=== PATIENT | male | born 1960 | race Caucasian/White ===

== ENCOUNTER 2016-07-31 02:06 | Emergency (ER) | payer BC ==
[~2016-07-31] VITALS: Ht 167.6 cm; Wt 82.0 kg
[2016-07-31 02:11] VITALS: Ht 167.6 cm; Wt 82.0 kg
--- NOTE | 2016-07-31 02:28 | ERA ---
ER Documentation Chief Complaint Date/Time DATE: 07/31/16 TIME: 02:28 Chief Complaint HTN HPI The patient is a 56-year-old male, presenting to the ED because of elevated blood pressure at home. He then took another Coreg 12.5 mg. He is under a lot of stress, denies headache, dizziness, facial pain, neck pain, chest pain, dyspnea, abdominal pain, vomiting, dysuria, diarrhea. He does not smoke, drinks socially Past medical history: Hypertension has been on Coreg 12.5 mg daily since November 2015 Past surgical history: Varicosis vein ROS All systems reviewed and are negative except as per history of present illness. Medications Home Meds Active Scripts Amlodipine Besylate* (Norvasc*) 5 Mg Tablet, 5 MG PO DAILY for 30 Days, TAB Prov:IMAN HOORWITZ MD 07/31/16 Physical Exam Vitals Vital Signs Date Time Temp Pulse Resp B/P Pulse Ox O2 Delivery O2 Flow Rate FiO2 07/31/16 03:49 98.0 50 20 153/86 99 Room Air 07/31/16 02:30 97.6 52 18 166/99 99 Room Air 07/31/16 02:11 97.6 56 18 205/95 99 Physical Exam Const: No acute distress. Anxious Head: Atraumatic. Eyes: Normal Conjunctiva. ENT: Normal External Ears, Nose and Mouth. Neck: Full range of motion. No meningismus. Resp: Clear to auscultation bilaterally. Cardio: Regular but tachycardic Abd: Soft, non distended, normal bowel sounds, non tender. Skin: No petechiae or rashes. Back: No midline or flank tenderness. Ext: No cyanosis, or edema. Neur: Awake and alert. No focal deficit Psych: Normal Mood and Affect. Result Diagram: 07/31/16 0250 07/31/16 0250 Results 24 hrs Laboratory Tests Test 07/31/16 02:50 White Blood Count 9.210^3/ul Red Blood Count 4.8910^6/ul Hemoglobin 15.8g/dl Hematocrit 47.3% Mean Corpuscular Volume 96.7fl Mean Corpuscular Hemoglobin 32.3pg Mean Corpuscular Hemoglobin Concent 33.4g/dl Red Cell Distribution Width 13.2% Platelet Count 56854^3/UL Mean Platelet Volume 11.7fl Neutrophils % 62.9% Lymphocytes % 24.8% Monocytes % 7.3% Eosinophils % 3.8% Basophils % 0.7% Nucleated Red Blood Cells % 0.0/100WBC Neutrophils # 5.810^3/ul Lymphocytes # 2.310^3/ul Monocytes # 0.710^3/ul Eosinophils # 0.410^3/ul Basophils # 0.110^3/ul Nucleated Red Blood Cells # 0.010^3/ul Sodium Level 144mmol/L Potassium Level 4.0mmol/L Chloride Level 109mmol/L Carbon Dioxide Level 23mmol/L Anion Gap 16 Blood Urea Nitrogen 21mg/dl Creatinine 0.94mg/dl Glucose Level 112mg/dl Calcium Level 9.4mg/dl Current Medications Medications (Trade) Dose Ordered Sig/Anil Route PRN Reason Start Time Stop Time Status Last Admin Dose Admin Lorazepam (Ativan) 0.5 mg ONCE ONCE PO 07/31/16 03:00 07/31/16 03:01 DC 07/31/16 02:49 Procedures/MDM EKG: Read by emergency physician Rate/Rhythm: Sinus bradycardia 51 beats/min QRS, ST, T-waves: No ST elevation, no T inversion Impression: Abnormal EKG MEDICAL MAKING DECISION: The patient is a 56-year-old male, presenting with acute accelerated hypertension, acute stress, acute anxiety. He was treated with Ativan 0.5 mg p.o. with good response. Blood pressure improved. The differential diagnoses considered include but are not limited to sick sinus syndrome, beta-katelynn toxicity, acute coronary syndrome, acute myocardial infarction, pericarditis, pulmonary embolism, aortic dissection, pneumonia, pleural effusion, pneumothorax, GERD, chest wall pain. His bradycardia due to extra dose of Coreg Departure Diagnosis: Primary Impression: HTN (hypertension) Additional Impression: Stress Condition: Good Comments He was advised to stop Coreg and started Norvasc 5 mg daily due to bradycardia I discussed the findings with the patient. I advised the patient to follow-up with the primary physician in about 1-2 days, sooner if needed and return if any concern. IMAN HOROWITZ MD Jul 31, 2016 02:28
[2016-07-31] MEDS ORDERED: LORAZEPAM 0.5 MG TAB PO ONE (03:00)
[2016-07-31 03:07] LABS: ADD SCAN DIFF NO
[2016-07-31 03:08] LABS: BASOPHIL # 0.1 10^3/ul (0.0-0.1); BASOPHILS % 0.7 % (0.0-2.0); EOSINOPHILS # 0.4 10^3/ul (0.0-0.5); EOSINOPHILS % 3.8 % (0.0-7.0); HEMATOCRIT 47.3 % (42.0-52.0); HEMOGLOBIN 15.8 g/dl (14.0-18.0); LYMPHOCYTES # 2.3 10^3/ul (0.8-2.9); LYMPHOCYTES % 24.8 % (15.0-51.0); MEAN CORPUSCULAR HEMOGLOBIN 32.3 pg (29.0-33.0); MEAN CORPUSCULAR HGB CONC 33.4 g/dl (32.0-37.0); MEAN CORPUSCULAR VOLUME 96.7 fl (82.0-101.0); MEAN PLATELET VOLUME 11.7 fl (7.4-10.4); MONOCYTE # 0.7 10^3/ul (0.3-0.9); MONOCYTES % 7.3 % (0.0-11.0); NEUTROPHIL # 5.8 10^3/ul (1.6-7.5); NEUTROPHILS % 62.9 % (39.0-77.0); PLATELET COUNT 221 10^3/UL (140-415); RED BLOOD COUNT 4.89 10^6/ul (4.70-6.10); RED CELL DISTRIBUTION WIDTH 13.2 % (11.5-14.5); WHITE BLOOD COUNT 9.2 10^3/ul (4.8-10.8)
[2016-07-31 03:22] LABS: CREATININE 0.94 mg/dl (0.61-1.24)
[2016-07-31 03:23] LABS: CALCIUM 9.4 mg/dl (8.4-10.2)
[2016-07-31] MEDS ORDERED: AMLO5TAB4 PO (04:02)
[2016-07-31 04:23] VITALS: BP 142/84; PULSE 67; RESP 20; TEMP 98
== END 2016-07-31 04:25 | disposition home or self-care (01) ==
LOC: E/R 02:06
DX: I10 Essential (primary) hypertension (principal); Z73.3 Stress, not elsewhere classified
CPT/HCPCS: 36415; 80048; 85025; 93005

== ENCOUNTER 2017-02-03 04:13 | Inpatient (IN) | payer BC ==
[~2017-02-03] VITALS: Ht 167.6 cm; Wt 78.1 kg
[2017-02-03] VITALS (7 sets, daily range): BP systolic 114–140; BP diastolic 73–87; PULSE 52–62; RESP 17–18; TEMP 97; Ht 167.6 cm; Wt 78.1 kg
[~2017-02-03 04:13] MED LIST: AMLO5TAB4 PO
[2017-02-03] MEDS ORDERED: SOD CHLORIDE 0.9% 1,000 ML IV STA (04:28)
[2017-02-03 05:00] LABS: ABNORMAL IP MESSAGE 1; BASOPHIL # 0.1 10^3/ul (0.0-0.1); BASOPHILS % 0.7 % (0.0-2.0); EOSINOPHILS # 0.5 10^3/ul (0.0-0.5); EOSINOPHILS % 4.3 % (0.0-7.0); HEMATOCRIT 45.5 % (42.0-52.0); HEMOGLOBIN 15.1 g/dl (14.0-18.0); LYMPHOCYTES # 5.9 10^3/ul (0.8-2.9); LYMPHOCYTES % 52.9 % (15.0-51.0); MEAN CORPUSCULAR HEMOGLOBIN 31.9 pg (29.0-33.0); MEAN CORPUSCULAR HGB CONC 33.2 g/dl (32.0-37.0); MEAN PLATELET VOLUME 11.2 fl (7.4-10.4); MONOCYTE # 0.9 10^3/ul (0.3-0.9); MONOCYTES % 8.3 % (0.0-11.0); NEUTROPHIL # 3.7 10^3/ul (1.6-7.5); NEUTROPHILS % 33.4 % (39.0-77.0); PLATELET COUNT 273 10^3/UL (140-415); POSITIVE DIFF @See below; RED BLOOD COUNT 4.74 10^6/ul (4.70-6.10); RED CELL DISTRIBUTION WIDTH 13.9 % (11.5-14.5); WHITE BLOOD COUNT 11.2 10^3/ul (4.8-10.8)
[2017-02-03 05:16] LABS: INR 0.89; PT RATIO 0.9
[2017-02-03] MEDS: DILTIAZEM 25 MG INJ IV ONE ×2 (05:16→05:18)
[2017-02-03 05:17] LABS: PARTIAL THROMBOPLASTIN TIME 23.6 Sec (25.0-35.0)
[2017-02-03] MEDS: DILTIAZEM-D5W 125MG/125ML DRIP 125 ML IV SCH ×2 (05:18→05:21)
[2017-02-03 05:24] LABS: ALANINE AMINOTRANSFERASE 53 IU/L (13-69); ALBUMIN 4.5 g/dl (3.3-4.9); ALKALINE PHOSPHATASE 80 IU/L (42-121); ANION GAP 14 (8-16); ASPARTATE AMINO TRANSFERASE 87 IU/L (15-46); BILIRUBIN,INDIRECT 0.7 mg/dl (0-1.1); BILIRUBIN,TOTAL 0.7 mg/dl (0.2-1.3); BLOOD UREA NITROGEN 18 mg/dl (7-20); CALCIUM 9.3 mg/dl (8.4-10.2); CARBON DIOXIDE 22 mmol/L (21-31); CHLORIDE 110 mmol/L (97-110); CREATININE 1.09 mg/dl (0.61-1.24); GLUCOSE 107 mg/dl (70-220); POTASSIUM 3.8 mmol/L (3.5-5.1); SODIUM 142 mmol/L (135-144); TOTAL PROTEIN 7.5 g/dl (6.1-8.1)
--- NOTE | 2017-02-03 05:25 | RADRPT ---
PROCEDURE: CHEST - 1 VIEW CLINICAL INDICATION: 57-year-old male with chest pain. TECHNIQUE: A single frontal AP portable view of the chest was performed. The images were reviewed on a PACS workstation. COMPARISON: None. FINDINGS: There is a shallow inspiration accentuating the heart size. Accounting for this, the cardiomediastin al silhouette is within normal limits. There is mild bibasilar subsegmental atelectasis. There is n o evidence for an infiltrate. There is no evidence for congestive heart failure. There is no eviden ce for pneumothorax. The osseous structures are intact. IMPRESSION: Shallow inspiration with mild bibasilar subsegmental atelectasis. .Harley Shelton MD, Date Time Electronically viewed and signed by .Harley Shelton MD, on 02/03/2017 05:25 .M/
--- NOTE | 2017-02-03 05:34 | ERA ---
ER Documentation Chief Complaint Date/Time DATE: 02/03/17 TIME: 05:31 Chief Complaint Pt. states, "my heart is going really fast!". c/o chest pain rad left shou HPI This is a 57-year-old man who comes in saying "my heart is going really fast". Patient said he has had palpitations will come up from bed. Also complains of some mild substernal chest pain lasting for 10 minutes when he first noticed palpitations. No nausea vomiting no fevers no chills. Palpitations have been continuous since he woke up. Patient has no history of any palpitations in the past. No other current complaints. ROS All systems reviewed and are negative except as per history of present illness. Medications Home Meds Active Scripts Amlodipine Besylate* (Norvasc*) 5 Mg Tablet, 5 MG PO DAILY for 30 Days, TAB Prov:IMAN HOROWITZ MD 07/31/16 PMhx/Soc Anesthesia Reaction: No Hx Neurological Disorder: No Hx Respiratory Disorders: No Hx Cardiac Disorders: Yes (HTN) Hx Psychiatric Problems: No Hx Miscellaneous Medical Probl: No Hx Alcohol Use: Yes Hx Substance Use: No Hx Tobacco Use: No Physical Exam Vitals Vital Signs Date Time Temp Pulse Resp B/P Pulse Ox O2 Delivery O2 Flow Rate FiO2 02/03/17 05:15 97.0 125 20 145/81 99 Nasal Cannula 2.0 02/03/17 04:43 104 20 131/84 99 Nasal Cannula 2.0 02/03/17 04:35 Nasal Cannula 2 02/03/17 04:35 126 29 132/78 96 Nasal Cannula 2.0 02/03/17 04:30 246 28 147/121 97 Room Air 02/03/17 04:29 247 27 144/109 97 Room Air 02/03/17 04:19 97.0 240 24 147/86 99 Physical Exam Const: [] Head: Atraumatic Eyes: Normal Conjunctiva ENT: Normal External Ears, Nose and Mouth. Neck: Full range of motion..~ No meningismus. Resp: Clear to auscultation bilaterally Cardio: Regular rate and rhythm, no murmurs Abd: Soft, non tender, non distended. Normal bowel sounds Skin: No petechiae or rashes Back: No midline or flank tenderness Ext: No cyanosis, or edema Neur: Awake and alert Psych: Normal Mood and Affect Result Diagram: 02/03/17 0447 Results 24 hrs Laboratory Tests Test 02/03/17 04:47 White Blood Count 11.210^3/ul Red Blood Count 4.7410^6/ul Hemoglobin 15.1g/dl Hematocrit 45.5% Mean Corpuscular Volume 96.0fl Mean Corpuscular Hemoglobin 31.9pg Mean Corpuscular Hemoglobin Concent 33.2g/dl Red Cell Distribution Width 13.9% Platelet Count 63851^3/UL Mean Platelet Volume 11.2fl Neutrophils % 33.4% Lymphocytes % 52.9% Monocytes % 8.3% Eosinophils % 4.3% Basophils % 0.7% Nucleated Red Blood Cells % 0.0/100WBC Neutrophils # 3.710^3/ul Lymphocytes # 5.910^3/ul Monocytes # 0.910^3/ul Eosinophils # 0.510^3/ul Basophils # 0.110^3/ul Nucleated Red Blood Cells # 0.010^3/ul Prothrombin Time 12.0Sec Prothrombin Time Ratio 0.9 INR International Normalized Ratio 0.89 Activated Partial Thromboplast Time 23.6Sec Current Medications Medications (Trade) Dose Ordered Sig/Anil Route PRN Reason Start Time Stop Time Status Last Admin Dose Admin Sodium Chloride (NS) 1,000 ml @ 1,000 mls/hr Q1H STAT IV 02/03/17 04:28 02/03/17 05:27 DC 02/03/17 05:16 Diltiazem HCl 20 mg 20 mg ONCE ONCE IV 02/03/17 04:30 02/03/17 04:31 DC 02/03/17 05:18 Diltiazem HCl (Cardizem-D5W 125 Mg/125 ml Drip) 125 ml @ 5 mls/hr TITRATE IV 02/03/17 05:00 02/03/17 05:21 Procedures/MDM Chest X-ray 1V Interpreted by me: Soft Tissue: No acute abnormalities Bones: No acute abnormalities Mediastinum/Cardiac Silhouette/Lungs: [No acute abnormalities] EKG: Rate/Rhythm: Irregular rate. Tachycardic rhythm. QRS, ST, T-waves: [No changes consistent w/ acute ischemia] Impression: Atrial fibrillation with rapid ventricular response Patient's symptoms are concerning for cardiac cause will require inpatient workup and continuous monitoring. Further w/u for ischemia, arrhythmia, PE or dissection will be deferred to the inpatient team. Accepting Care Team: Current data and ongoing care discussed. Time: 5:30 AM Primary Provider: Hospitalist Consulting: [BLESSING] Outstanding Data: none Critical Care: Time: 45 minutes Treatments/Evaluations: Close monitoring and treatment of unstable vital signs, cardiorespiratory, and neurologic status, while maintaining tight balance of fluid, respiratory, and cardiac interventions. Departure Diagnosis: Primary Impression: Chest pain Qualified Code: R07.9 - Chest pain, unspecified type Additional Impression: Atrial fibrillation with RVR Condition: Serious GIL MARTINEZ Feb 03, 2017 05:34
[2017-02-03 05:36] LABS: B-TYPE NATRIURETIC PEPTIDE 184 PG/ML (0-125)
[2017-02-03 05:41] LABS: TROPONIN-I < 0.012 ng/ml (0.00-0.12)
[2017-02-03] MEDS ORDERED: METOPROLOL 5 MG INJ ONE (05:47)
[2017-02-03] MEDS: METOPROLOL 5 MG INJ IV ONE ×2 (06:11→06:16)
[2017-02-03] MEDS ORDERED: DILTIAZEM 25 MG INJ IV ONE (06:30)
--- NOTE | 2017-02-03 07:54 | HP ---
Date/Time of Note Date/Time of Note DATE: 02/03/17 TIME: 07:49 Assessment/Plan VTE Prophylaxis VTE Prophylaxis Intervention: LMWH Lines/Catheters IV Catheter Type (from Nrs): Saline Lock Assessment/Plan Assessment/Plan ASSESSMENT 57-year-old male with a history of hypertension presents with palpitation and chest pain found to be in A-fib with RVR PLAN Patient is status post IV diltiazem and metoprolol and is currently rate controlled He will be started on oral beta-katelynn was as needed IV meds Admit to telemetry unit Trend troponin 2D echo Check TSH Cardiology consult HPI/ROS Admit Date/Time Admit Date/Time Hx of Present Illness This is a 57-year-old male with a history of hypertension who presented to emergency department with acute onset of palpitation, shortness of breath and chest pain. When he presented to the ER he was found to have a heart rate greater than 200. EKG shows A. fib with RVR. He was given IV diltiazem and metoprolol and now he is rate controlled. PMH/Family/Social Past Medical History Medical History: hypertension Social History Alcohol Use: none Smoking Status: Never smoker Drug Use: none Exam/Review of Systems Vital Signs Vitals Vital Signs Date Time Temp Pulse Resp B/P Pulse Ox O2 Delivery O2 Flow Rate FiO2 02/03/17 06:18 97.0 76 20 129/75 99 Nasal Cannula 2.0 Exam Constitutional: alert, oriented, well developed Head: atraumatic, normocephalic Eyes: EOMI, PERRL Respiratory: clear to auscultation, normal air movement Cardiovascular: irregular rhythm Gastrointestinal: non-tender, soft Extremities: normal pulses Labs Result Diagram: 02/03/17 0447 02/03/17 0447 Medications Medications Current Medications Diltiazem HCl (Cardizem-D5W 125 Mg/125 ml Drip) 125 ml @ 5 mls/hr TITRATE IV Last administered on 02/03/17t 05:21; Admin Dose 5 MLS/HR; Start 02/03/17 at 05: 00 GIL LOPEZ MD Feb 03, 2017 07:54
[2017-02-03] MEDS ORDERED: ACETAMINOPHEN 325 MG TAB PO PRN (08:00)
[2017-02-03] MEDS ORDERED: NACL 0.9% 3 ML SYG IV SCH (08:00)
[2017-02-03] MEDS ORDERED: morphine 2 MG INJ IV PRN (08:00)
[2017-02-03] MEDS ORDERED: ONDANSETRON 4 MG INJ IV PRN (08:00)
[2017-02-03] MEDS ORDERED: NITROGLYCERIN (SL) 0.4 MG TAB SL PRN (08:00)
[2017-02-03] MEDS ORDERED: METOPROLOL 25 MG TAB PO SCH (09:00)
[2017-02-03] MEDS: ASPIRIN 81 MG TAB PO SCH (12:02)
[2017-02-03 12:05] LABS: CK-MB 2.93 ng/ml (0.0-2.4)
[2017-02-03] MEDS: ENOXAPARIN 40 MG/0.4 ML SYG SC SCH (12:05)
[2017-02-03 12:10] LABS: TROPONIN-I 0.221 ng/ml (0.00-0.12)
[2017-02-03 14:49] LABS: CK-MB 2.61 ng/ml (0.0-2.4); TROPONIN-I 0.209 ng/ml (0.00-0.12)
[2017-02-03] MEDS ORDERED: POTASSIUM CHLORIDE (SR) 20 MEQ TAB PO STA (14:58)
[2017-02-03] MEDS ORDERED: MAGNESIUM SULFATE 2 GM/50 ML 50 ML IVPB ONE (15:00)
--- NOTE | 2017-02-03 15:04 | CONS ---
Date/Time of Note Date/Time of Note DATE: 02/03/17 TIME: 14:58 Assessment/Plan Assessment/Plan Additional Assessment/Plan SVT Mildly elevated troponin Hypertension -Patient palpitations and initial ECG with evidence of SVT. Unfortunately her no rhythm strips from the emergency room to review. As per the emergency room records, patient was possibly in atrial fibrillation. Patient did convert to sinus rhythm with IV Cardizem. Troponins are minimally elevated and likely secondary to tachycardia. Would continue aspirin therapy, continue beta- katelynn as heart rate and blood pressure permits, check echocardiogram, supplement potassium to maintain above 4.0 and magnesium above 2.0. Continue telemetry monitoring. Consultation Date/Type/Reason Admit Date/Time Type of Consultation: cv Reason for Consultation Palpitations Hx of Present Illness This is a 57-year-old male with past medical history of hypertension who presents with severe palpitations which woke him up from sleep last night. Patient with shortness of breath during this episode but denied chest pain. Symptoms did not resolve after a few minutes we came to the emergency room. In the emergency room, patient with heart rate above 240 was given IV Cardizem. As per review of medical records, patient converted to sinus rhythm. He did have a similar episode the night before which resolved on its own. He otherwise denies exertional chest pain or shortness of breath, palpitations or dizziness. 12 point review of systems was performed with all pertinent positives and negatives mentioned above and all else is negative Past Medical History Medical History: hypertension Past Surgical History Lower extremity varicose vein treatment Family History Significant Family History: no pertinent family hx Social History Alcohol Use: other (2 alcoholic beverages daily) Smoking Status: Former smoker Drug Use: none Other Social History 1 cup of coffee a day Exam/Review of Systems Vital Signs Vitals Vital Signs Date Time Temp Pulse Resp B/P Pulse Ox O2 Delivery O2 Flow Rate FiO2 02/03/17 12:15 62 02/03/17 11:47 97.8 18 140/80 98 02/03/17 09:15 Room Air 02/03/17 06:18 2.0 Exam No apparent distress Constitutional: alert, oriented Head: normocephalic Neck: supple Respiratory: other (Coarse breath sounds bilaterally, no wheezing) Cardiovascular: other (S1-S2 heard), regular rate and rhythm Gastrointestinal: bowel sounds, non-tender, soft Extremities: other (No edema) Results Result Diagram: 02/03/17 0447 02/03/17 0447 Results 24 hrs Laboratory Tests Test 02/03/17 04:47 02/03/17 10:57 02/03/17 13:47 White Blood Count 11.2 #H Red Blood Count 4.74 Hemoglobin 15.1 Hematocrit 45.5 Mean Corpuscular Volume 96.0 Mean Corpuscular Hemoglobin 31.9 Mean Corpuscular Hemoglobin Concent 33.2 Red Cell Distribution Width 13.9 Platelet Count 273 # Mean Platelet Volume 11.2 H Neutrophils % 33.4 L Lymphocytes % 52.9 H Monocytes % 8.3 Eosinophils % 4.3 Basophils % 0.7 Nucleated Red Blood Cells % 0.0 Neutrophils # 3.7 Lymphocytes # 5.9 H Monocytes # 0.9 Eosinophils # 0.5 Basophils # 0.1 Nucleated Red Blood Cells # 0.0 Prothrombin Time 12.0 L Prothrombin Time Ratio 0.9 INR International Normalized Ratio 0.89 Activated Partial Thromboplast Time 23.6 L Sodium Level 142 Potassium Level 3.8 Chloride Level 110 Carbon Dioxide Level 22 Anion Gap 14 Blood Urea Nitrogen 18 Creatinine 1.09 Glucose Level 107 Calcium Level 9.3 Total Bilirubin 0.7 Direct Bilirubin 0.00 Indirect Bilirubin 0.7 Aspartate Amino Transf (AST/SGOT) 87 H Alanine Aminotransferase (ALT/SGPT) 53 Alkaline Phosphatase 80 Troponin I < 0.012 0.221 *H 0.209 *H B-Type Natriuretic Peptide 184 H Total Protein 7.5 Albumin 4.5 Globulin 3.00 Albumin/Globulin Ratio 1.50 Creatine Kinase 113 98 Creatine Kinase Index 2.6 2.7 Creatinine Kinase MB (Mass) 2.93 H 2.61 H Magnesium Level 1.9 Medications Medications Current Medications Diltiazem HCl (Cardizem-D5W 125 Mg/125 ml Drip) 125 ml @ 5 mls/hr TITRATE IV Last administered on 02/03/17 05:21; Admin Dose 5 MLS/HR; Start 02/03/17 at 05: 00 Ondansetron HCl (Zofran Inj) 4 mg Q6H PRN IV NAUSEA AND/OR VOMITING; Start at 08:00 Aspirin (Aspirin) 81 mg DAILY PO Last administered on 02/03/17 12:02; Admin Dose 81 MG; Start 02/03/17 at 09:00 Nitroglycerin (Nitroglycerin (Sl Tab) 0.4 Mg) 1 tab Q5M PRN SL CHEST PAIN; Start 02/03/17 at 08:00 Acetaminophen (Tylenol Tab) 650 mg Q6H PRN PO PAIN LEVEL 1-3 OR FEVER Last administered on 02/03/17 12:01; Admin Dose 650 MG; Start 02/03/17 at 08:00 Morphine Sulfate (morphine) 2 mg Q4H PRN IV PAIN LEVEL 7-10; Start 02/03/17 at 08:00 Enoxaparin Sodium (Lovenox) 40 mg DAILY SC Last administered on 02/03/17 12:05 ; Admin Dose 40 MG; Start 02/03/17 at 09:00 Metoprolol Tartrate (Lopressor) 25 mg Q12 PO ; Start 02/03/17 at 09:00 Procedures Procedures ECG done in the emergency room this morning at 4:18 AM demonstrates SVT at 240 bpm, QRS 162 ms with right bundle branch block morphology, nonspecific ST segment abnormalities Arturo Castrejon DO Feb 03, 2017 15:04
--- NOTE | 2017-02-03 15:28 | RADRPT ---
Echocardiogram Report Patient Name: AMOL TAY Gender: Male Date: 1960 Study Date: 03-Feb-2017 [employer] Teacher: Jai Barros [facility] Location: [id number] Ref. Physician: GIL LOPEZ Quality: Good Procedures: Transthoracic echocardiogram with complete 2D, M-Mode, and doppler examination. Indications: Atrial Fibrillation. 2D/M Mode Doppler Measurement Value Normal Ranges Measurement Value Normal Ranges LVIDd 2D 4.4 3.5 - 5.6 cm AV Peak Juan 1.7 m/sec LVIDs 2D 2.8 2.1 - 4.1 cm AV Peak PG 11.0 mmHg FS 2D 37.2 % LVOT Peak Juan 1.1 m/sec LVPWd 2D 0.6 0.6 - 1.1 cm LVOT Peak PG 5.0 mmHg IVSd 2D 1.1 0.6 - 1.1 cm MV E Peak Juan 0.8 m/sec IVS/LVPW 2D 1.9 MV A Peak Juan 0.4 m/sec AoR Diam 2D 2.7 2.0 - 3.7 cm MV Decel Time 162 msec LA/Ao 2D 1 0 - 1 TR Peak Juan 2.3 m/sec EDV 2D 84.0 cm3 TR Peak PG 21.0 mmHg ESV 2D 20.8 cm3 RVSP 29.0 mmHg LA Dimen 2D 3.8 2.3 - 4.0 cm Findings Left Ventricle: Normal left ventricular systolic function. Normal left ventricular cavity size. Mild concentric left ventricular hypertrophy. Ejection fraction is visually estimated at 65 %. Abnormal Diastolic Function. Right Ventricle: Normal right ventricular size. Normal right ventricular systolic function. Left Atrium: The left atrium is normal in size. Right Atrium: The right atrium is normal in size. Mitral Valve: Normal appearance and function of the mitral valve with trace physiologic regurgitation. Aortic Valve: Normal appearance of the aortic valve. No significant aortic stenosis or insufficiency. Tricuspid Valve: Normal appearance of the tricuspid valve. Estimated peak PA systolic pressure 29 mmHg. There is trace tricuspid regurgitation. Pulmonic Valve: Normal pulmonic valve appearance. Pericardium: Normal pericardium with no significant pericardial effusion. Aorta: Normal aortic root. IVC: Normal size with poor respiratory collapse consistent with elevated right atrial pressure. Conclusions Normal left ventricular systolic function. Normal left ventricular cavity size. Mild concentric left ventricular hypertrophy. Ejection fraction is visually estimated at 65 %. Abnormal Diastolic Function. Normal right ventricular size. Normal right ventricular systolic function. The left atrium is normal in size. The right atrium is normal in size. No significant valvular stenosis or regurgitation seen. Normal pericardium with no significant pericardial effusion. Electronically Signed By: Arturo Castrejon 03-Feb-2017 15:27:51 -0700 Patient Name: AMOL TAY Study Date: 03-Feb-2017 [id number]
[2017-02-03] MEDS: METOPROLOL 25 MG TAB PO SCH (20:00)
[2017-02-04] VITALS (8 sets, daily range): BP systolic 134–156; BP diastolic 81–83; PULSE 40–61; RESP 18–20
[2017-02-04 08:11] LABS: BASOPHIL # 0.1 10^3/ul (0.0-0.1); BASOPHILS % 0.9 % (0.0-2.0); EOSINOPHILS # 0.4 10^3/ul (0.0-0.5); EOSINOPHILS % 4.1 % (0.0-7.0); HEMATOCRIT 43.5 % (42.0-52.0); HEMOGLOBIN 14.1 g/dl (14.0-18.0); LYMPHOCYTES # 2.6 10^3/ul (0.8-2.9); LYMPHOCYTES % 30.3 % (15.0-51.0); MEAN CORPUSCULAR HEMOGLOBIN 31.1 pg (29.0-33.0); MEAN CORPUSCULAR HGB CONC 32.4 g/dl (32.0-37.0); MEAN PLATELET VOLUME 11.4 fl (7.4-10.4); MONOCYTE # 0.8 10^3/ul (0.3-0.9); MONOCYTES % 9.3 % (0.0-11.0); NEUTROPHIL # 4.6 10^3/ul (1.6-7.5); NEUTROPHILS % 54.9 % (39.0-77.0); PLATELET COUNT 221 10^3/UL (140-415); RED BLOOD COUNT 4.53 10^6/ul (4.70-6.10); RED CELL DISTRIBUTION WIDTH 14.5 % (11.5-14.5); WHITE BLOOD COUNT 8.5 10^3/ul (4.8-10.8)
[2017-02-04] MEDS: ENOXAPARIN 40 MG/0.4 ML SYG SC SCH (08:40)
[2017-02-04] MEDS: METOPROLOL 25 MG TAB PO SCH (08:40)
[2017-02-04] MEDS: ASPIRIN 81 MG TAB PO SCH (08:40)
[2017-02-04 08:49] LABS: ALBUMIN 3.7 g/dl (3.3-4.9); ALBUMIN/GLOBULIN RATIO 1.23; BILIRUBIN,INDIRECT 1.3 mg/dl (0-1.1); BILIRUBIN,TOTAL 1.3 mg/dl (0.2-1.3); CALCIUM 8.8 mg/dl (8.4-10.2); CHOL/HDL RATIO 3.3 RATIO; CREATININE 1.07 mg/dl (0.61-1.24); MAGNESIUM 2.2 mg/dl (1.7-2.5); POTASSIUM 4.8 mmol/L (3.5-5.1); TOTAL PROTEIN 6.7 g/dl (6.1-8.1)
[2017-02-04] MEDS ORDERED: REGADENOSON 0.4 MG/5 ML SYG ONE (08:57)
[2017-02-04 09:27] LABS: THYROID STIMULATING HORMONE 1.75 MIU/L (0.465-4.680)
--- NOTE | 2017-02-04 11:01 | RADRPT ---
PROCEDURE: LEXISCAN MYOCARDIAL PERFUSION STUDY CLINICAL INDICATION: Atrial fibrillation with increased troponins. TECHNIQUE: Lexiscan 0.4 mg intravenously separate acquisition, gated myocardial perfusion SPECT us ing 32 mCi intravenously at stress and 10.5 mCi intravenously at rest was performed using the rest/s tress sequence. Poststress SPECT images were obtained in the supine position. COMPARISON: No prior studies. FINDINGS: Perfusion images reveal no evidence of perfusion defects. Poststress gated SPECT images demonstrate no wall motion abnormalities. IMPRESSION: 1. No evidence of perfusion defects. 2. No wall motion abnormalities. 3. The left ventricle ejection fraction at stress is estimated at greater than 70% likely due to sm all cardiac volume. RPTAT: HH Physician Renetta Date Time Electronically viewed and signed by Physician Renetta on 02/04/2017 11:01 /
--- NOTE | 2017-02-04 11:16 | PN ---
Date/Time of Note Date/Time of Note DATE: 02/04/17 TIME: 11:15 Assessment/Plan VTE Prophylaxis VTE Prophylaxis Intervention: ambulation Lines/Catheters IV [facility] Saline Lock Assessment/Plan Chief Complaint/Hosp Course Patient is a 57-year-old male with a past medical history of remote hypertension on no medications who was found to have palpitations and chest pain found to be in A. fib with RVR Assessment Atrial fibrillation with RVR, currently normal sinus rhythm Palpitations Chest pain Elevated troponin Bradycardia, a symptomatically Elevated indirect bilirubin, mild hypertension Plan -Cardiology consulted, on beta-blockers, heart rate is low, possible switch to different medication -No discrete evidence per cardiology of A. fib, keep on aspirin -Patient doing well, will appreciate cardiology recommendations, will DC when okay with cards. Problems: Subjective 24 Hr Interval Summary Free Text/Dictation no acute complaints Exam/Review of Systems Vital Signs Vitals Vital Signs Date Time Temp Pulse Resp B/P Pulse Ox O2 Delivery O2 Flow Rate FiO2 02/04/17 08:10 51 02/04/17 07:53 97.6 20 156/82 99 02/03/17 09:15 Room Air 02/03/17 06:18 2.0 Intake and Output 02/03/17 02/03/17 02/04/17 15:00 23:00 07:00 Intake Total 1140 ml Balance 1140 ml Exam Physical exam General: Patient is laying in bed and answers questions appropriately Mentation: Patient is alert and oriented 4, Head: Normocephalic atraumatic Eyes: EOMI, pupils reactive to light Neck: Supple, nontender, midline Respiratory: Clear to auscultation bilaterally Cardiovascular: regular rate, no obvious murmurs Gastrointestinal: non-tender to palpation, bowel sounds heard. Neurological: Moves all extremities spontaneously Skin: No new skin lesions Results Result Diagram: 02/04/17 0701 02/04/17 07 Results 24 hrs Laboratory Tests Test 02/03/17 13:47 02/04/17 07:01 Magnesium Level 1.9 2.2 Creatine Kinase 98 Creatine Kinase Index 2.7 Creatinine Kinase MB (Mass) 2.61 H Troponin I 0.209 *H White Blood Count 8.5 # Red Blood Count 4.53 L Hemoglobin 14.1 Hematocrit 43.5 Mean Corpuscular Volume 96.0 Mean Corpuscular Hemoglobin 31.1 Mean Corpuscular Hemoglobin Concent 32.4 Red Cell Distribution Width 14.5 Platelet Count 221 Mean Platelet Volume 11.4 H Neutrophils % 54.9 Lymphocytes % 30.3 Monocytes % 9.3 Eosinophils % 4.1 Basophils % 0.9 Nucleated Red Blood Cells % 0.0 Neutrophils # 4.6 Lymphocytes # 2.6 Monocytes # 0.8 Eosinophils # 0.4 Basophils # 0.1 Nucleated Red Blood Cells # 0.0 Sodium Level 142 Potassium Level 4.8 Chloride Level 111 H Carbon Dioxide Level 26 Anion Gap 10 Blood Urea Nitrogen 15 Creatinine 1.07 Glucose Level 98 Hemoglobin A1c 5.5 Calcium Level 8.8 Total Bilirubin 1.3 Direct Bilirubin 0.00 Indirect Bilirubin 1.3 H Aspartate Amino Transf (AST/SGOT) 39 # Alanine Aminotransferase (ALT/SGPT) 57 Alkaline Phosphatase 71 Total Protein 6.7 Albumin 3.7 Globulin 3.00 Albumin/Globulin Ratio 1.23 Triglycerides Level 108 Cholesterol Level 190 LDL Cholesterol, Calculated 112 HDL Cholesterol 56 Cholesterol/HDL Ratio 3.3 Thyroid Stimulating Hormone (TSH) 1.750 Medications Medications Current Medications Ondansetron HCl (Zofran Inj) 4 mg Q6H PRN IV NAUSEA AND/OR VOMITING; Start at 08:00 Aspirin (Aspirin) 81 mg DAILY PO Last administered on 02/04/17 08:40; Admin Dose 81 MG; Start 02/03/17 at 09:00 Nitroglycerin (Nitroglycerin (Sl Tab) 0.4 Mg) 1 tab Q5M PRN SL CHEST PAIN; Start 02/03/17 at 08:00 Acetaminophen (Tylenol Tab) 650 mg Q6H PRN PO PAIN LEVEL 1-3 OR FEVER Last administered on 02/03/17 12:01; Admin Dose 650 MG; Start 02/03/17 at 08:00 Morphine Sulfate (morphine) 2 mg Q4H PRN IV PAIN LEVEL 7-10; Start 02/03/17 at 08:00 Enoxaparin Sodium (Lovenox) 40 mg DAILY SC Last administered on 02/04/17 08:40 ; Admin Dose 40 MG; Start 02/03/17 at 09:00 Metoprolol Tartrate (Lopressor) 12.5 mg Q12 PO ; Start 02/03/17 at 21:00 RENE FRANCES Feb 04, 2017 11:16
[2017-02-04] MEDS ORDERED: DILTIAZEM (CD) 120 MG CAP PO STA (16:31)
[2017-02-04] MEDS ORDERED: METOPROLOL (XL) 25 MG TAB PO STA (16:44)
--- NOTE | 2017-02-04 16:52 | CONS ---
Date/Time of Note Date/Time of Note DATE: 02/04/17 TIME: 16:49 Assessment/Plan Assessment/Plan Additional Assessment/Plan SVT Mildly elevated troponin Hypertension Preserved ejection fraction Normal nuclear cardiac perfusion study 02/04/2017 -No further episodes of SVT, heart rate on the lower end, would continue on Toprol XL 25 mg p.o. daily, aspirin 81 mg daily. Outpatient EP evaluation. Consultation Date/Type/Reason Admit Date/Time Feb 03, 2017 at 05:29 Initial Consult Date Type of Consultation: cv 24 HR Interval Summary Free Text/Dictation Denies palpitations, chest pain or shortness of breath Exam/Review of Systems Vital Signs Vitals Vital Signs Date Time Temp Pulse Resp B/P Pulse Ox O2 Delivery O2 Flow Rate FiO2 02/04/17 15:43 98.1 60 18 134/83 97 02/03/17 09:15 Room Air 02/03/17 06:18 2.0 Intake and Output 02/03/17 02/03/17 02/04/17 15:00 23:00 07:00 Intake Total 1140 ml Balance 1140 ml Exam No apparent distress Constitutional: alert, oriented Head: normocephalic Respiratory: other (Coarse breath sounds bilaterally, no wheezing) Cardiovascular: other (S1-S2 heard), regular rate and rhythm Gastrointestinal: bowel sounds, non-tender, soft Extremities: other (No edema) Results Result Diagram: 02/04/17 0701 02/04/17 0701 Results 24 hrs Laboratory Tests Test 02/04/17 07:01 White Blood Count 8.5 # Red Blood Count 4.53 L Hemoglobin 14.1 Hematocrit 43.5 Mean Corpuscular Volume 96.0 Mean Corpuscular Hemoglobin 31.1 Mean Corpuscular Hemoglobin Concent 32.4 Red Cell Distribution Width 14.5 Platelet Count 221 Mean Platelet Volume 11.4 H Neutrophils % 54.9 Lymphocytes % 30.3 Monocytes % 9.3 Eosinophils % 4.1 Basophils % 0.9 Nucleated Red Blood Cells % 0.0 Neutrophils # 4.6 Lymphocytes # 2.6 Monocytes # 0.8 Eosinophils # 0.4 Basophils # 0.1 Nucleated Red Blood Cells # 0.0 Sodium Level 142 Potassium Level 4.8 Chloride Level 111 H Carbon Dioxide Level 26 Anion Gap 10 Blood Urea Nitrogen 15 Creatinine 1.07 Glucose Level 98 Hemoglobin A1c 5.5 Calcium Level 8.8 Magnesium Level 2.2 Total Bilirubin 1.3 Direct Bilirubin 0.00 Indirect Bilirubin 1.3 H Aspartate Amino Transf (AST/SGOT) 39 # Alanine Aminotransferase (ALT/SGPT) 57 Alkaline Phosphatase 71 Total Protein 6.7 Albumin 3.7 Globulin 3.00 Albumin/Globulin Ratio 1.23 Triglycerides Level 108 Cholesterol Level 190 LDL Cholesterol, Calculated 112 HDL Cholesterol 56 Cholesterol/HDL Ratio 3.3 Thyroid Stimulating Hormone (TSH) 1.750 Medications Medications Current Medications Ondansetron HCl (Zofran Inj) 4 mg Q6H PRN IV NAUSEA AND/OR VOMITING; Start at 08:00 Aspirin (Aspirin) 81 mg DAILY PO Last administered on 02/04/17 08:40; Admin Dose 81 MG; Start 02/03/17 at 09:00 Nitroglycerin (Nitroglycerin (Sl Tab) 0.4 Mg) 1 tab Q5M PRN SL CHEST PAIN; Start 02/03/17 at 08:00 Acetaminophen (Tylenol Tab) 650 mg Q6H PRN PO PAIN LEVEL 1-3 OR FEVER Last administered on 02/03/17 12:01; Admin Dose 650 MG; Start 02/03/17 at 08:00 Morphine Sulfate (morphine) 2 mg Q4H PRN IV PAIN LEVEL 7-10; Start 02/03/17 at 08:00 Enoxaparin Sodium (Lovenox) 40 mg DAILY SC Last administered on 02/04/17 08:40 ; Admin Dose 40 MG; Start 02/03/17 at 09:00 Arturo Castrejon DO Feb 04, 2017 16:52
--- NOTE | 2017-02-04 16:58 | PDOCDIS ---
Discharge Instructions CONDITION Patient Condition: Stable HOME CARE INSTRUCTIONS: Special Diet: Heart Healthy ACTIVITY: Activity Restrictions: Slowly Increase Activity FOLLOW UP/APPOINTMENTS Follow-up Plan 1. Please follow up with cardiology, custody assistant, Dr. Tyree Messer, RENE FRANCES Feb 04, 2017 16:58
[2017-02-04] MEDS ORDERED: ASPI81TA3 PO (17:00)
[2017-02-04] MEDS ORDERED: METO-335 PO (17:00)
--- NOTE | 2017-02-04 17:09 | DS ---
Date/Time of Note Date/Time of Note DATE: 02/04/17 TIME: 17:09 Discharge Summary Admission/Discharge Info Admit Date/Time Feb 03, 2017 at 05:29 Discharge Date/Time Patient Condition: Stable Hx of Present Illness This is a 57-year-old male with a history of hypertension who presented to emergency department with acute onset of palpitation, shortness of breath and chest pain. When he presented to the ER he was found to have a heart rate greater than 200. EKG shows A. fib with RVR. He was given IV diltiazem and metoprolol and now he is rate controlled. Hospital Course Patient is a 57-year-old male with no significant past medical history except for occasional palpitations in the past who presents to [facility] for palpitations. In the ED patient was apparently in atrial fib with RVR, however upon cardiology review on the floor there was no tracings that showed atrial fibrillation. Patient was diagnosed with supraventricular tachycardia of unknown origin. Patient also received stress test which was ordered under commodities clerk which turned out normal, and patient remained asymptomatic during the course of his admission. Patient also had a mildly elevated troponin secondary to heart rate elevation, which is also reason why patient received stress test. Patient will be discharged on a very low dose sustained release metoprolol, and aspirin 81 mg daily to follow-up outpatient fluorescent lamp replacer as soon as possible. Patient agrees with this plan. Discharge diagnosis Tachycardia, supraventricular tachycardia Questionable atrial fib relation Mild troponin elevation Hypertension Chest pain Bradycardia, asymptomatic Home Meds Active Scripts Metoprolol Succinate* (Toprol XL*) 25 Mg Tab.sr.24h, 25 MG PO DAILY, #30 TAB 2 Refills Prov:RENE FRANCES 02/04/17 Aspirin (Aspirin) 81 Mg Chew, 81 MG PO DAILY for 30 Days, #30 TAB 2 Refills Prov:RENE FRANCES 02/04/17 Discontinued Scripts Amlodipine Besylate* (Norvasc*) 5 Mg Tablet, 5 MG PO DAILY for 30 Days, TAB Prov:IMAN HOROWITZ MD 07/31/16 Follow-up Plan 1. Please follow up with cardiology, fluorescent lamp replacer, Dr. Tyree Messer, Primary Care Provider Not On Staff Doctor Time spent on discharge: > 30 minutes Pending Labs Laboratory Tests Test 02/04/17 07:01 White Blood Count 8.510^3/ul (4.8-10.8) Red Blood Count 4.5310^6/ul (4.70-6.10) Hemoglobin 14.1g/dl (14.0-18.0) Hematocrit 43.5% (42.0-52.0) Mean Corpuscular Volume 96.0fl (82.0-101.0) Mean Corpuscular Hemoglobin 31.1pg (29.0-33.0) Mean Corpuscular Hemoglobin Concent 32.4g/dl (32.0-37.0) Red Cell Distribution Width 14.5% (11.5-14.5) Platelet Count 52174^3/UL (140-415) Mean Platelet Volume 11.4fl (7.4-10.4) Neutrophils % 54.9% (39.0-77.0) Lymphocytes % 30.3% (15.0-51.0) Monocytes % 9.3% (0.0-11.0) Eosinophils % 4.1% (0.0-7.0) Basophils % 0.9% (0.0-2.0) Nucleated Red Blood Cells % 0.0/100WBC (0.0-0.0) Neutrophils # 4.610^3/ul (1.6-7.5) Lymphocytes # 2.610^3/ul (0.8-2.9) Monocytes # 0.810^3/ul (0.3-0.9) Eosinophils # 0.410^3/ul (0.0-0.5) Basophils # 0.110^3/ul (0.0-0.1) Nucleated Red Blood Cells # 0.010^3/ul (0.0-0.0) Sodium Level 142mmol/L (135-144) Potassium Level 4.8mmol/L (3.5-5.1) Chloride Level 111mmol/L (97-110) Carbon Dioxide Level 26mmol/L (21-31) Anion Gap 10 (8-16) Blood Urea Nitrogen 15mg/dl (7-20) Creatinine 1.07mg/dl (0.61-1.24) Glucose Level 98mg/dl (70-220) Hemoglobin A1c 5.5% (0-5.9) Calcium Level 8.8mg/dl (8.4-10.2) Magnesium Level 2.2mg/dl (1.7-2.5) Total Bilirubin 1.3mg/dl (0.2-1.3) Direct Bilirubin 0.00mg/dl (0.00-0.20) Indirect Bilirubin 1.3mg/dl (0-1.1) Aspartate Amino Transf (AST/SGOT) 39IU/L (15-46) Alanine Aminotransferase (ALT/SGPT) 57IU/L (13-69) Alkaline Phosphatase 71IU/L (42-121) Total Protein 6.7g/dl (6.1-8.1) Albumin 3.7g/dl (3.3-4.9) Globulin 3.00g/dl (1.3-3.2) Albumin/Globulin Ratio 1.23 Triglycerides Level 108mg/dl (0-149) Cholesterol Level 190mg/dl (100-200) LDL Cholesterol, Calculated 112mg/dl HDL Cholesterol 56mg/dl (30-78) Cholesterol/HDL Ratio 3.3RATIO Thyroid Stimulating Hormone (TSH) 1.750MIU/L (0.465-4.680) RENE FRANCES Feb 04, 2017 17:09
--- NOTE | 2017-02-10 13:45 | EN ---
Date/Time of Note Date/Time of Note DATE: 02/10/17 TIME: 13:42 Event Note Cardiology Cardiology Event Note [place] Scan ECG Report 02/04/17 57 y/o male with SVT and mildly elevated troponins Baseline ECG SR @ 60bpm, non-specific ST abnormalities BP 163/83 Lexiscan administered as per protocol Symptoms of SOB, FRAGOSO, hot flashes, abdominal pain which resolved No significant ECG changes or arrhythmia Peak heart rate 129 Peak blood pressure 163/90 ECG interpretation: Non-ischemic Arturo Castrejon DO Feb 10, 2017 13:45
== END 2017-02-04 19:05 | disposition home or self-care (01) | DRG 310 ==
LOC: E/R 04:13 → MS4 05:29
PROVIDERS: ADMIT Hospitalist; ATTEND Hospitalist
DX: I48.91 Unspecified atrial fibrillation (principal); I10 Essential (primary) hypertension; I47.1 Supraventricular tachycardia; R00.1 Bradycardia, unspecified
CPT/HCPCS: 36415; 71010; 78452; 80053; 80061; 82550; 82553; 83036; 83735; 83880; 84443; 84484; 85025; 85610; 85730; 93005; 93017; 93306; 96374; 96375; 96376; A9500; A9505; J1650; J2785; J3475; J7030